=== PATIENT | female | born 1965 | race Caucasian/White ===

== ENCOUNTER 2019-10-11 16:31 | Outpatient (CLI) | payer OTHER, SELFPAY ==
[2019-10-11 18:09] LABS: Vitamin D 25 Hydroxy 48.9 ng/mL
== END 2019-10-11 16:32 | disposition home or self-care (01) ==
LOC: ANHLAB 16:33
PROVIDERS: Visit Provider Obstetrics & Gynecology
DX: Z78.0 Asymptomatic menopausal state (principal)
CPT/HCPCS: 36415; 82306

== ENCOUNTER → 2019-11-25 10:05 | Outpatient (CLI) | payer OTHER, SELFPAY ==
--- NOTE | ~2019-11-25 | MM_ITS ---
EXAMINATION: MM screening [facility] BI w jovi HISTORY: Screening mammogram TECHNIQUE: Craniocaudal and mediolateral oblique 3-D tomosynthesis images were obtained and synthetic 2-D images were generated. CAD analysis was submitted and interpreted. COMPARISON: 11/09/2018, 11/05/2017, 11/01/2016, 10/30/2015 BREAST PARENCHYMAL COMPOSITION: There are scattered areas of fibroglandular density. FINDINGS: There is no evidence of suspicious mass, calcification, or architectural distortion to sugg est malignancy in either breast. There has been no suspicious interval change. IMPRESSION: 1. No mammographic evidence of malignancy. 2. Recommend routine screening mammography in one year. BI-RADS Category 1: Negative Reviewed, dictated and finalized at location A.
--- NOTE | ~2019-11-25 | DEXA_ITS ---
Bone Density Report Name: Zaynab Mota Age: 54 Sex: Female Ethnicity: White Date of : 1965 Indication: postmenopausal; screening for osteoporosis; hysterectomy; Referring Provider: LAURA ACEVES Study: Bone densitometry was performed. Exam Date: November 25, 2019 Accession number: [id number] Bone Density: Region BMD T-score Z-score Classification AP Spine (L1-L4) 0.917 -1.2 -0.3 Osteopenia Femoral Neck (Left) 0.872 0.2 1.1 Normal Total Hip (Left) 0.947 0.0 0.6 Normal Femoral Neck (Right) 0.881 0.3 1.2 Normal Total Hip (Right) 1.004 0.5 1.1 Normal Total Hip Mean 0.976 0.3 0.9 Normal World Health Organization criteria for BMD impression classify patients as: Normal (T-score at or above -1.0), Osteopenia (T-score between -1.0 and -2.5), or Osteoporosis (T-score at or below -2.5). 10-year Fracture Risk(1): Major Osteoporotic Fracture 4.1% Hip Fracture 0.1% Reported Risk Factors: [place] (), Neck BMD=0.872, BMI=23.8 (1) FRAX(R) Version 3.08. Fracture probability calculated for an untreated patient. Fracture probability may be lower if the patient has received treatment. Previous Exams: Region Exam Age BMD T-score BMD Change BMD Change Date g/cm2 vs Baseline vs Previous AP Spine(L1-L4) 11/25/2019 54 0.917 -1.2 -0.176* -0.115 10/28/2014 49 1.032 -0.1 -0.061 -0.043* 10/05/2011 46 1.075 0.3 -0.018 -0.018 09/07/2007 42 1.093 0.4 Total Hip(Left) 11/25/2019 54 0.947 0.0 -0.198* -0.211 10/28/2014 49 1.158 1.8 0.013 -0.020 10/05/2011 46 1.178 1.9 0.034 0.034 09/07/2007 42 1.144 1.7 Total Hip(Right) 11/25/2019 54 1.004 0.5 -0.151* -0.183 10/28/2014 49 1.187 2.0 0.032 0.034* 10/05/2011 46 1.152 1.7 -0.002 -0.002 09/07/2007 42 1.155 1.7 *Denotes significance at 95% confidence level, LSC for AP Spine = 0.022 g/cm2, LSC for Total Hip = 0.027 g/cm2 Clinical Information Provided by Patient: Has the following medical conditions: Hysterectomy Patient maximum height was 64.5 Menopause Age: 46 Drinks caffeinated beverages Onset of menses at age 16 Number of children 2 Missed period for more than 6 months in a row Impression: The patient has low bone mass, based on the Total Spine T-score. Th
== END ==
PROVIDERS: PCP Family Medicine; Visit Provider Obstetrics & Gynecology
DX: Z12.31 Encounter for screening mammogram for malignant neoplasm of breast (principal); Z78.0 Asymptomatic menopausal state; M85.88 Other specified disorders of bone density and structure, other site
CPT/HCPCS: 77063; 77067; 77080

== ENCOUNTER 2019-11-29 16:34 | Outpatient (CLI) | payer OTHER, SELFPAY ==
[2019-11-29 17:38] LABS: Alanine Aminotransferase 36 U/L (4-35); Albumin Level 4.4 g/dL (3.5-5.1); Alkaline Phosphatase 66 U/L (38-126); Aspartate Amino Transferase 35 U/L (14-36); Bilirubin,Total 0.3 mg/dL (0.2-1.3)
== END 2019-11-29 16:35 | disposition home or self-care (01) ==
PROVIDERS: PCP Family Medicine; Visit Provider Podiatrist Foot & Ankle Surgery
DX: B35.1 Tinea unguium (principal)
CPT/HCPCS: 36415; 80076

== ENCOUNTER 2019-12-28 07:30 | Outpatient (CLI) | payer OTHER, SELFPAY ==
[2019-12-28 08:09] LABS: Alanine Aminotransferase 25 U/L (4-35); Albumin Level 4.2 g/dL (3.5-5.1); Alkaline Phosphatase 54 U/L (38-126); Aspartate Amino Transferase 33 U/L (14-36); Bilirubin,Total 0.3 mg/dL (0.2-1.3)
== END 2019-12-28 07:31 | disposition home or self-care (01) ==
PROVIDERS: PCP Family Medicine; Visit Provider Podiatrist Foot & Ankle Surgery
DX: B35.1 Tinea unguium (principal)
CPT/HCPCS: 36415; 80076

== ENCOUNTER → 2020-11-28 06:56 | Outpatient (CLI) | payer OTHER, SELFPAY ==
--- NOTE | ~2020-11-28 | MM_ITS ---
EXAMINATION: MM screening [facility] BI w jovi HISTORY: Screening TECHNIQUE: Craniocaudal and mediolateral oblique 3-D tomosynthesis images were obtained and synthetic 2-D images were generated. CAD analysis was submitted and interpreted. COMPARISON: Comparison to multiple prior studies sequentially, with oldest reviewed study dated 03/2015. BREAST PARENCHYMAL COMPOSITION: The breasts are heterogeneously dense, which may obscure small masses . FINDINGS: There is no evidence of suspicious mass, calcification, or architectural distortion to sugg est malignancy in either breast. There has been no suspicious interval change. IMPRESSION: 1. No mammographic evidence of malignancy. 2. Recommend routine screening mammography in one year. BI-RADS Category 1: Negative Reviewed, dictated and finalized at location A.
== END ==
PROVIDERS: PCP Family Medicine; Visit Provider Obstetrics & Gynecology
DX: Z12.31 Encounter for screening mammogram for malignant neoplasm of breast (principal)
CPT/HCPCS: 77063; 77067

== ENCOUNTER 2021-03-27 07:03 | Outpatient (CLI) | payer OTHER, SELFPAY ==
[2021-03-27 07:39] LABS: Alanine Aminotransferase 27 U/L (4-35); Albumin Level 4.3 g/dL (3.5-5.1); Alkaline Phosphatase 74 U/L (38-126); Anion Gap 2 mmol/L (8-16); Aspartate Amino Transferase 32 U/L (14-36); Bilirubin,Total 0.3 mg/dL (0.2-1.3); Blood Urea Nitrogen 17 mg/dL (7-17); Carbon Dioxide 29 mmol/L (22-30); Chloride 105 mmol/L (98-107); Cholesterol 185 mg/dL (0-200); Estimated Glomerular Filt Rate > 60; Glucose 91 mg/dL (65-110); HDL Direct 84 mg/dL; Potassium 4.1 mmol/L (3.4-5.0); Sodium 136 mmol/L (137-145); Triglycerides 56 mg/dL (<150)
[2021-03-27 07:44] LABS: Basophils Percent Auto 0.3 % (0.2-1.2); Eosinophils Absolute Auto 0.1 K/mm3 (0-0.3); Eosinophils Percent Auto 1.4 % (0-4.4); Hematocrit 35.8 % (37.0-47.0); Hemoglobin 11.4 g/dL (12.0-15.0); Immature Granulocyte Absolute 0.01 K/mm3 (0.00-0.031); Immature Granulocyte Percent A 0.2 % (0-0.5); Lymphocytes Absolute Auto 1.08 K/mm3 (0.9-3.2); Lymphocytes Percent Auto 18.7 % (18.3-44.2); Mean Corpuscular HGB Conc 31.8 g/dl (32-36); Mean Corpuscular Hemoglobin 28.4 pg (26-34); Mean Corpuscular Volume 89.3 fl (80-100); Mean Platelet Volume 9.7 fl (7.4-10.4); Monocytes Absolute Auto 0.4 K/mm3 (0.1-0.6); Monocytes Percent Auto 7.3 % (2.6-8.5); Neutrophils Absolute Auto 4.2 K/mm3 (1.3-6.7); Neutrophils Percent Auto 72.1 % (45.5-73.1); Platelet Count Result 253 k/mm3 (150-375); Red Blood Count 4.01 M/mm3 (4.2-5.4); Red Cell Distribution Width 12.8 % (11.5-14.5); White Blood Count 5.8 K/mm3 (4.5-10.0)
[2021-03-27 07:50] LABS: LDL Cholesterol Direct 74 mg/dL
== END 2021-03-27 07:04 | disposition home or self-care (01) ==
PROVIDERS: PCP Family Medicine; Visit Provider Family Medicine
DX: D50.9 Iron deficiency anemia, unspecified (principal); Z00.00 Encounter for general adult medical examination without abnormal findings; Z13.1 Encounter for screening for diabetes mellitus; Z13.220 Encounter for screening for lipoid disorders
CPT/HCPCS: 36415; 80053; 80061; 85025

== ENCOUNTER → 2021-12-04 07:10 | Outpatient (CLI) | payer OTHER, SELFPAY ==
--- NOTE | ~2021-12-04 | MM_ITS ---
EXAMINATION: MM screening [facility] BI w jovi HISTORY: Screening mammogram TECHNIQUE: Craniocaudal and mediolateral oblique 3-D tomosynthesis images were obtained and synthetic 2-D images were generated. CAD analysis was submitted and interpreted. COMPARISON: 11/28/2020, 11/25/2019, 11/09/2018 bilateral screening mammogram examinations BREAST PARENCHYMAL COMPOSITION: The breasts are heterogeneously dense, which may obscure small masses . FINDINGS: There is no evidence of suspicious mass, calcification, or architectural distortion to sugg est malignancy in either breast. There has been no suspicious interval change. IMPRESSION: 1. No mammographic evidence of malignancy. 2. Recommend routine screening mammography in one year. BI-RADS Category 1: Negative Reviewed, dictated and finalized at location B.
== END ==
PROVIDERS: PCP Family Medicine; Visit Provider Obstetrics & Gynecology
DX: Z12.31 Encounter for screening mammogram for malignant neoplasm of breast (principal)
CPT/HCPCS: 77063; 77067

== ENCOUNTER → 2021-12-07 08:44 | Outpatient (CLI) | payer OTHER, SELFPAY ==
--- NOTE | ~2021-12-07 | XR_ITS ---
EXAMINATION: XR abdomen/kub 1V DATE: 12/07/2021 09:21 INDICATION: Hematuria. TECHNIQUE: A supine view of the abdomen on 2 radiographs was obtained. COMPARISON: CT abdomen and pelvis 12/07/2021 FINDINGS: There are no dilated loops of bowel. There is a moderate volume of stool in the colon. Surg ical clips in the right upper quadrant are likely from cholecystectomy. IMPRESSION: 1. No urolithiasis. Reviewed, dictated and finalized at location A. IMPRESSION: 1. No urolithiasis.
--- NOTE | ~2021-12-07 | CT_ITS ---
EXAMINATION: CT abdomen pelvis wo/w con DATE: 12/07/2021 09:22 INDICATION: Hematuria. TECHNIQUE: Computed tomography (CT) of the abdomen and pelvis was performed without and with intraven ous contrast using a total of 130 mL Omnipaque-350 intravenous contrast with a double-bolus technique for simultaneous opacification of the renal parenchyma and renal collecting system. Automated exposu re control and iterative reconstruction technique were employed. The dose-length product was 1184.24 mGy-cm. COMPARISON: CT abdomen and pelvis 04/26/2004 FINDINGS: The visualized portions of the lung bases demonstrate mild atelectasis. No pleural effusion. The hear t size is normal. No pericardial effusion. There are cysts in the liver measuring up to 8 mm. There a re changes of cholecystectomy. The spleen, pancreas, and adrenal glands are normal. The kidneys are n ormal. There is no urolithiasis. Right ureter is not well opacified distally, but is normal. Left ure ter is not well opacified distally, but is normal. The bladder is normal. There are no dilated loops of bowel. The appendix is normal. There are no pathologically enlarged lymph nodes. There is no free intraperitoneal fluid. There is severe degenerative disc disease at L5-S1. IMPRESSION: 1. No etiology for hematuria. Reviewed, dictated and finalized at location A.
[2021-12-07 09:03] LABS: Estimated Glomerular Filt Rate > 60
== END ==
PROVIDERS: PCP Family Medicine; Visit Provider Nurse Practitioner Family
DX: R31.9 Hematuria, unspecified (principal)
CPT/HCPCS: 74018; 74178; Q9967

== ENCOUNTER 2022-01-01 07:23 | Outpatient (CLI) | payer OTHER, SELFPAY ==
[2022-01-01 08:44] LABS: Hematocrit 36.1 % (37.0-47.0); Hemoglobin 11.5 g/dL (12.0-15.0)
== END 2022-01-01 07:24 | disposition home or self-care (01) ==
LOC: ANHSURGERY 07:26
PROVIDERS: Anesthesiology; PCP Family Medicine; Visit Provider Podiatrist Foot & Ankle Surgery
DX: D64.9 Anemia, unspecified (principal)
CPT/HCPCS: 36415; 85014; 85018

== ENCOUNTER 2022-01-04 00:55 | Day surgery (SDC) | payer OTHER, SELFPAY ==
[2021-12-28 10:01] VITALS: BMI 25.3
--- NOTE | 2021-12-28 10:15 | PC.NURSE ---
Report to the Outpatient Waiting Room, entrance under the green pavilion located off [facility], at time 6:00 on date 01/04/22. OR Time: 7:30. Time changes happen often and if your time is changed the preop area will call you the afternoon before. - You and your visitor will be asked to self-screen and do not enter if you have any COVID symptoms. - Only one visitor and NO children visitors are allowed at this time. - The patient visitor is requested to leave or wait in car when not with patient due to restrictions. - A mask is required within the hospital. Patients may have clear liquids (water, carbonated beverages, clear teas, apple juice) until 3 hours prior to surgery (4:30) with a maximum of 20 ounces. - No food from midnight until time of surgery Take the following medications with a SIP of water the morning of surgery: VENLAFAXINE Medications to discontinue per physician: VITAMINS/SUPPLEMENTS Date to take last dose: 12/31/[address] KWAN Please no make-up, nail sami, hairspray, perfume, deodorant, or body powder the day of surgery. No jewelry (including any body piercings) or valuables the day of surgery, leave them at home. Please take a shower or bath the night before, or the morning of, surgery with an antibacterial soap. Wear comfortable, loose fitting clothing. - Jewelry must be removed prior to entering the operating room. Rings and piercings that are not removed may be cut off. - The hospital will not accept responsibility for valuables. - Please leave all valuables, including medications, at home the day of surgery. If you are going home after surgery, a licensed route driver salesperson must drive you home. - NO public transportation without another adult. - We recommend that an adult stay with you for 24 hours following discharge. - We also recommend that you do not drive, make important decision, drink alcoholic beverages, or take any drugs that were not prescribed by your health care provider for at least 24 hours after your discharge time. Follow any additional instructions given to you from your surgeon. If you or anyone in your household have experienced Covid symptoms in the past week, please notify your surgeon or the nurse liaison at the phone number below for possible testing. Telephone instructions given to PT - LIANG AMDRIGAL and asked if any additional questions and then verbalized understanding. Patient advised to call surgeon office or pre surgery nurse liaison [phone] if any additional questions.
--- NOTE | 2022-01-03 13:17 | WPDANESEPPF ---
Anes - Initial Pre Proc Eval Procedure: Operation Date: 01/04/22 07:30 Proposed Procedures p Lapidus Bunionectomy Left Foot, David Phalangeal Osteotomy Left Hallux - Vel Way JR, MD Date/Time: 01/03/22 13:17 Surgeon: Vel Way JR, MD Pre Op Diagnosis: bunion left foot Patient Data Age: 56 Gender: F Height: 1.64 m Weight: 68.04 kg Allergies Allergy/AdvReac Type Severity Reaction Status Date / Time adhesive Allergy Unknown SKIN Verified 01/04/22 06:53 BLISTERS Penicillins Allergy Unknown unknown Verified 01/04/22 06:53 Sulfa (Sulfonamide Allergy Unknown HIVES Verified 01/04/22 06:53 Antibiotics) sulfanilamide Allergy Unknown Unknown Verified 01/04/22 06:53 telithromycin Allergy Unknown Unknown Verified 01/04/22 06:53 hydrocodone AdvReac Unknown N/V Verified 01/04/22 06:53 duloxetine [From Cymbalta] AdvReac Nausea and Verified 01/04/22 06:53 Vomiting Bumble Bee Allergy Unknown ANAPHYLAXIS Uncoded 01/04/22 06:53 STERI STRIPS Allergy Blister Uncoded 01/04/22 06:53 Home Medications Medication Instructions Recorded Confirmed Type aspirin 81 mg tablet,delayed 81 mg PO DAILY 09/28/19 01/04/22 History release (Adult Low Dose Aspirin) ferrous sulfate 325 mg (65 mg 325 mg PO DAILY 09/28/19 01/04/22 History iron) tablet (Feosol) loratadine 10 mg capsule 10 mg PO DAILY 09/28/19 01/04/22 History multivit,mineral-folic acid 800 1 tablet PO DAILY 09/28/19 01/04/22 History mcg-vit K 100 mcg-herbal no.289 tablet (Alive Once Daily Women 50 Plus) pyridoxine (vitamin B6) 100 mg 100 mg PO DAILY 09/28/19 01/04/22 History tablet rizatriptan 10 mg tablet See Rx Instructions PO .COMPLEX 10/11/21 01/04/22 History calcium carbonate 500 mg-vitamin 1 tablet PO DAILY 12/28/21 01/04/22 History D3 10 mcg (400 unit) tablet (Calcium 500 + D) magnesium 250 mg tablet 250 mg PO DAILY 12/28/21 01/04/22 History riboflavin (vitamin B2) 25 mg 25 mg PO DAILY 12/28/21 01/04/22 History tablet venlafaxine 37.5 mg 37.5 mg PO DAILY 12/28/21 01/04/22 History capsule,extended release 24 hr Patient hx anesthesia problems: none Family hx anesthesia problems: none Results Review: All pre-operative results and documents have been reviewed as part of the pre-operative evaluation. PMFSH Past Medical History Medical History Depression Vaginal delivery x 2 Surgical History Surgical History History of bilateral tubal ligation History of cholecystectomy History of endometrial ablation History of laparoscopy History of tonsillectomy History of total hysterectomy with bilateral salpingo-oophorectomy (BSO) S/P shoulder surgery Family History Family History Mother Family history of elevated blood lipids Grandparent Family history of Alzheimer's disease, Onset Age: 201 Family history of pulmonary embolism, Onset Age: 54 Diabetes mellitus Father Family history of malignant neoplasm of urinary bladder Sibling Family history of cardiomyopathy Family history of left ventricular non-compaction (LVNC) Other Family history of malignant neoplasm of breast Family history of malignant neoplasm of male breast Social History Social History Smoking status: Never smoker Second hand tobacco smoke exposure: No Alcohol intake: current Alcohol use details: OCCASIONALLY Substance use: never Substance use type: does not use Living arrangements: with family Spiritual care concerns: No Anes - Eval Final PreProcedure Day of Procedure 01/03/22 13:17 Patient weight: normal Heart: regular rate and rhythm Lungs: clear to auscultation and normal air movement Airway: Mallampati scale class II Neurological: alert and oriented Last ora
[2022-01-04] VITALS (8 sets, daily range): BP systolic 97–120; BP diastolic 41–74; PULSE 59–84; RESP 13–18; TEMP 36.2–36.9; O2SAT 96–100
--- NOTE | ~2022-01-04 | XR_ITS ---
EXAMINATION: XR surgery orthopedic DATE: 01/04/2022 09:14 INDICATION: Left foot bunionectomy TECHNIQUE: 3 fluoroscopic images of the left forefoot were obtained during procedure performed by Dr. Way. Radiologist was not present for the imaging or procedure. The amount of fluoroscopy time u sed during this procedure was 0.4 minutes. COMPARISON: 09/27/2013 FINDINGS: Likely closing wedge osteotomy at the base of the first proximal phalanx with medial sided staple fix ation. First tarsal metatarsal arthrodesis with dorsal plate and screw fixation as well as a lag scre w extending from the base of the first metatarsal across a portion of the medial cuneiform into the m id cuneiform. Small amount of soft tissue gas overlying the medial head of the first metatarsal altho ugh no definitive osteotomies identified at the head of the first metatarsal. Wire-like metallic dens ity projecting over the medial side of the second toe which extends beyond the skin surface possibly a lap sponge marker. Alignment of the visualized bones is normal. No fracture. Visualized joint space s appear relatively preserved. IMPRESSION: 1. Fluoroscopy utilized during orthopedic procedure at the left foot as detailed above. See procedure note for further detail. Reviewed, dictated and finalized at location A. IMPRESSION: 1. Fluoroscopy utilized during orthopedic procedure at the left foot as detaile d above. See procedure note for further detail.
[2022-01-04] MEDS: LACTATED RINGERS 1,000 ML 30 ML IV CONT (06:30)
--- NOTE | 2022-01-04 07:10 | WPDHPUPDATE1 ---
History and Physical Update Update Date/Time: 01/04/22 07:10 History and Physical has been reviewed, including an updated exam of the patient. There are NO changes in the patient's condition. Risks, benefits, and alternatives have been discussed and questions answered. Patient agrees to proceed with procedure.
--- NOTE | 2022-01-04 07:13 | WPDANESPNB ---
Anes - Peripheral Nerve Block Date/Time: 01/04/22 07:13 I have discussed with the patient/family/POA the placement of a peripheral nerve block for post-operative pain management, including associated risks, benefits, complications, and side effects. Alternative methods of post-operative analgesia were detailed. Questions were solicited and answers provided to the satisfaction of the patient/family/POA. Time-Out: A pre-procedural Time-Out was completed immediately before starting the procedure and confirmed: Patient Identification, Site, Procedure, Patient Position and the Availability of Requisite Equipment. Clinical Indications: Acute post-operative pain management requested by the operative surgeon. Nerve Block Insertion Note Anes-nerve block: posterior fossa sciatic (20cc) Patient position: supine Skin prep: chlorhexidine Needle: 22 gauge, stimulating, insulated echogenic needle. Needle length: 80 mm Technique: ultrasound (in plane) Injectate: bupivacaine 0.5% with epi 5 mcg/ml (20cc) Observations: tolerated well Complications: none Procedure start time:: 720 Procedure end time:: 725
[2022-01-04] MEDS: SCOPOLAMINE 1.5 MG PATCH TRANSDERM (07:25)
[2022-01-04] MEDS: ceFAZolin 2 GM/D5W 50 ML 2 GM/50 ML BAG IVPB (07:37)
--- NOTE | 2022-01-04 09:36 | W.PM.PROC2 ---
Procedure Note - Detailed Date of Procedure 01/04/22 Pre-op Diagnosis Bunion left foot Post-op Diagnosis Same Procedure Performed Lapidus bunionectomy left foot David phalalangeal osteotomy left hallux Surgeon Vel Way JR, RADHA Anesthesia General and Regional Indications Painful bunion left foot Description of Procedure Under mild sedation, the patient was brought to the operating room, placed on the operating table in the supine position. A pneumatic ankle tourniquet was placed about the patient's ankle. Following general anesthesia and a previous popliteal fossa block, the foot was then scrubbed, prepped, and draped in the usual aseptic manner. An Esmarch bandage was then used to examine the patient's foot and pneumatic ankle tourniquet was then inflated. Surgery began in the following manner. Attention was directed to the dorsal aspect of the 1st metatarsocuneiform of the foot where fluoroscopy was used to identify the joint. A 3 cm incision was made overlying the dorsal aspect of the 1st metatarsocuneiform joint of the foot just medial to the extensor hallucis longus tendon. The incision was then continued deep down through the subcutaneous tissues using sharp and blunt dissection. All bleeders were ligated and cauterized as necessary. At this point, the extensor tendon was identified and reflected laterally. Next, the periosteum and capsular incision was made at the full length of the skin incision exposing the medial cuneiform as well as the base of the 1st metatarsal. Next, a sagittal bone saw was introduced from dorsal to plantar across the 1st metatarsocuneiform joint in order to free up any ankylosed portions of the joint and also to release any adhesions. Two Steinmann Pins were driven from dorsal to plantar 1cm proximal and distal to the 1st metatarsal cuneiform joint. The provided curved osteotome and curette was used to resect the cartilage and subchondral bone and a 2.0mm drill bit was used to fenestrate the joint to promote fusion. At this point, a small 2 cm incision was made along the lateral aspect of the 1st metatarsophalangeal joint of the left foot and a lateral release consisting of a lateral capsule incision as well as release of the adductor hallucis tendon with the tenotomy as well as releasing the distal aspect and lateral aspect and proximal aspect of the fibular sesamoid. After this, a lateral release was performed. The hallux was noted to be slightly reduced as far as the track-bound hallux. A 3m incision was made medial to the first metatarsal head extending proximal to the proximal phalanx. A 1.4mm Steinmann pin was driven from medial to lateral across the 1st metatarsal head. Next the Lapifuse positioner was used to obtain 3 plane correction of the hallux abductovalgus deformity. Fluoroscopy was used to make sure that the 1st MPJ was congruous and the sesamoid apparatus was centered under the first metatarsal. Next a 4mm cannulated screw was driven from the medial base of the 1st metatarsal to the central and lateral cuneiform bone. Excellent compression was noted, next a Lapifuse plate was placed dorsal medially along the 1st metatarsal cuneiform joint and 4 locking and one eccentrically drilled non locking screws was used to further compress the joint to ensure arthrodesis. At this point the positioner was removed and fluoroscopy was used to make sure that deformity correction was maintained. The patient still had slight hallux abductus so I made a closing medial base wedge resection from the base of the proximal phalanx and compressed the osteotomy with a Bujbu 8mm nitinol compression staple. After the David osteotomy the hallux was noted to be in a rectus position. The periosteum and capsular structures were reapproximated and coapted utilizing horizontal mattress as well as simple interrupted suture fashion technique along the 1st metatarsophalangeal joint and then 3-0 PDS wa
[2022-01-04] MEDS: ONDANSETRON INJ 4 MG/2 ML VIAL IV PUSH (10:51)
== END 2022-01-04 11:54 | disposition home or self-care (01) ==
PROVIDERS: PCP Family Medicine; Visit Provider Podiatrist Foot & Ankle Surgery
PROC: (CPT 28299; principal; 2022-01-04 07:30)
DX: M21.612 Bunion of left foot (principal)
CPT/HCPCS: 28298; 99199; A9270; C1713; J0690; J1100; J2250; J2405; J2704; J3010; J7120

== ENCOUNTER 2022-03-29 06:59 | Outpatient (CLI) | payer OTHER, SELFPAY ==
[2022-03-29 07:39] LABS: Hematocrit 35.2 % (37.0-47.0); Mean Corpuscular HGB Conc 31.3 g/dl (32-36); Mean Corpuscular Volume 89.6 fl (80-100); Mean Platelet Volume 9.3 fl (7.4-10.4); Platelet Count Result 316 k/mm3 (150-375); Red Blood Count 3.93 M/mm3 (4.2-5.4); White Blood Count 3.8 K/mm3 (4.5-10.0)
[2022-03-29 07:43] LABS: Alanine Aminotransferase 26 U/L (6-35); Albumin Level 4.2 g/dL (3.5-5.1); Alkaline Phosphatase 110 U/L (38-126); Anion Gap 5 mmol/L (8-16); Aspartate Amino Transferase 27 U/L (14-36); Bilirubin,Total 0.2 mg/dL (0.2-1.3); Blood Urea Nitrogen 22 mg/dL (7-17); Calcium 8.9 mg/dL (8.4-10.2); Carbon Dioxide 31 mmol/L (22-30); Chloride 101 mmol/L (98-107); Cholesterol 218 mg/dL (0-200); Estimated Glomerular Filt Rate > 60; Glucose 88 mg/dL (65-110); HDL Direct 89 mg/dL; Potassium 3.8 mmol/L (3.4-5.0); Sodium 137 mmol/L (137-145); Triglycerides 55 mg/dL (<150)
[2022-03-29 07:54] LABS: LDL Cholesterol Direct 84 mg/dL
== END 2022-03-29 07:00 | disposition home or self-care (01) ==
LOC: ANHLAB 07:02
PROVIDERS: PCP Family Medicine; Visit Provider Family Medicine
DX: D50.9 Iron deficiency anemia, unspecified (principal); Z13.1 Encounter for screening for diabetes mellitus; Z13.220 Encounter for screening for lipoid disorders
CPT/HCPCS: 36415; 80053; 80061; 85027

== ENCOUNTER 2022-08-06 15:30 | Outpatient (RCR) | payer OTHER, SELFPAY ==
--- NOTE | 2022-06-25 15:55 | PTOPEVAL1 ---
Assessment and note entered by Michelle Canales, PT Evaluation Information Assessment Status Evaluation Diagnosis low back pain Onset June 04, 2022 Subjective Information gave antiinflammatory meds - helping; chronic back pain, twisted back in 1987 and problems off/ on since then; had MRI 2014--bulging discs and foramina changes per pt; have had PT in the past--exercises; pain management and injections--did not like them; since onset at start of month-- back pain is less; able to move more; does not normally do any fitness exercises but walking; since Dec L foot surgery, have not been as active; Reported Pain Level Pain Score Self Report Additional Pain Score Comments pain range in past week 0-10/10; low back, dull, ache, stabbing in back-- inside back; R lateral hip sore and weak feeling; increase pain when wake up in AM, tend to sleep on back or on R side; decrease pain with using muscle cream, antiinflammatory- but stopped taking, have 3 left of the script; feel little better as day goes on; heat pad, massage trigger gun; educated and use of trial Theracane for self massage to trigger points; have a back brace, use PRN; at home--- have an exercise ball, but not using; discussed using for exercises and stretching; Assessment PT Clinical Summary Zaynab has the diagnosis of low back pain. She has a history of chronic, intermittent back pain. And in December had L bunionectomy surgery, with L toe pain still present. This onset of back pain was about 3 weeks ago and is less now. She works as an structured cabling technician. With the evaluation, she has increased back pain with standing trunk extension and supine R hip stretch ER with figure 4 stretch - pain anterior hip. In standing, her R iliac crest is elevated and R shoulder and trunk forward rotation; there is pain in L foot with standing B PF & sitting big toe flexion and extension motions, with decreased flexion ROM and decreased single leg standing L; Skilled PT services are indicated for modalities to decrease pain, therapeutic exercises to increase hip and aide
--- NOTE | 2022-07-25 16:51 | PCPTNOTE ---
perioperative assistant, Brigida, asked physical therapist to rule out BPPV before physical therapist walked out the door as patient reports feeling dizzy. Patient has no issues with smooth pursuit, does have some blurriness with saccades and VOR. able to do Rhomberg eyes closed and on unfirm surface with eyes closed 30 seconds only using ankles mobility. No nystagmus or dizziness with [place] to the R or the L side. Could be hypoactive vestibular, but does not appear to be BPPV.
--- NOTE | 2022-08-07 08:04 | PTOPDC ---
Assessment and note entered by Michelle Canales, PT Evaluation Information Assessment Status Discharge Diagnosis low back pain Onset June 04, 2022 Subjective Information Zaynab reports: has been doing all of the exercises at home, has an exercise ball and using it; feels like therapy has helped some, but continues to have pain; is doing all her home and work things; more pain after watching grandkids over past weekend. Agrees to discharge PT and continue with her exercises and watching her back position. 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 EDUCATION: reviewed HEP- reinforced continue to perform; body mechanics and posture with walking dog, lifting up grandchildren, sewing, work positions--after awkward tasks, stretch in opposite direction, not to hold positions too long stretch and move at least every 30 min of sitting; monitor activity balance--work, rest balance. Pt voiced good understanding of above. [ End ] Assessment PT Clinical Summary Zaynab has received a total of 10 PT for the diagnosis of back pain. Compared to the initial evaluation: pain rating at the high rating has decreased from 10 to 8/10; continues to have times of NO pain; strength of trunk and hips has improved; education for HEP and body mechanics has been completed. The goals were partially met. Discharge PT--pt agreed to d/c and to continue with her HEP and monitor body mechanics. Plan of Care PT Services Indicated No
== END 2022-08-07 10:38 | disposition home or self-care (01) ==
LOC: ANHPT 15:30
PROVIDERS: PCP Family Medicine; Visit Provider Family Medicine
DX: S39.012D Strain of muscle, fascia and tendon of lower back, subsequent encounter (principal)
CPT/HCPCS: 97110; 97112; 97162; 97530

== ENCOUNTER → 2022-12-10 07:19 | Outpatient (CLI) | payer OTHER, SELFPAY ==
--- NOTE | ~2022-12-10 | MM_ITS ---
EXAMINATION: MM screening [facility] BI w jovi HISTORY: Screening mammogram TECHNIQUE: Craniocaudal and mediolateral oblique 3-D tomosynthesis images were obtained and synthetic 2-D images were generated. CAD analysis was submitted and interpreted. COMPARISON: 12/04/2021, 11/28/2020, 11/25/2019 BREAST PARENCHYMAL COMPOSITION:There are scattered areas of fibroglandular density. FINDINGS: No suspicious mass, calcification, or architectural distortion are identified in either neeraj ast to suggest malignancy. There has been no suspicious interval change. IMPRESSION: No mammographic evidence of malignancy. Recommend routine screening mammography in one year. BI-RADS Category 1: Negative Reviewed, dictated and finalized at location .
== END ==
PROVIDERS: PCP Family Medicine; Visit Provider Obstetrics & Gynecology
DX: Z12.31 Encounter for screening mammogram for malignant neoplasm of breast (principal)
CPT/HCPCS: 77063; 77067

== ENCOUNTER → 2023-03-20 13:12 | Outpatient (CLI) | payer OTHER, SELFPAY ==
--- NOTE | ~2023-03-20 | DEXA_ITS ---
Bone Density Report Name: LIANG MADRIGAL Age: 57 Sex: Female Ethnicity: White Date of : 1965 Indication: osteopenia; hysterectomy; Referring Provider: LAURA ACEVES Study: Bone densitometry was performed. Exam Date: March 20, 2023 Accession number: [id number] Bone Density: Region BMD T-score Z-score Classification AP Spine (L1-L4) 0.969 -0.7 0.4 Normal Femoral Neck (Left) 0.862 0.1 1.2 Normal Total Hip (Left) 1.014 0.6 1.3 Normal Femoral Neck (Right) 0.857 0.1 1.1 Normal Total Hip (Right) 1.009 0.5 1.3 Normal Total Hip Mean 1.012 0.6 1.3 Normal World Health Organization criteria for BMD impression classify patients as: Normal (T-score at or above -1.0), Osteopenia (T-score between -1.0 and -2.5), or Osteoporosis (T-score at or below -2.5). 10-year Fracture Risk: FRAX not reported because: All T-scores for Spine Total, Hip Total, Femoral Neck at or above -1.0 Previous Exams: Region Exam Age BMD T-score BMD Change BMD Change Date g/cm2 vs Baseline vs Previous AP Spine(L1-L4) 03/20/2023 57 0.969 -0.7 -0.125* 0.051* 11/25/2019 54 0.917 -1.2 -0.176* -0.115 10/28/2014 49 1.032 -0.1 -0.061 -0.043* 10/05/2011 46 1.075 0.3 -0.018 -0.018 09/07/2007 42 1.093 0.4 Total Hip(Left) 03/20/2023 57 1.014 0.6 -0.130* 0.068* 11/25/2019 54 0.947 0.0 -0.198* -0.211 10/28/2014 49 1.158 1.8 0.013 -0.020 10/05/2011 46 1.178 1.9 0.034 0.034 09/07/2007 42 1.144 1.7 Total Hip(Right) 03/20/2023 57 1.009 0.5 -0.146* 0.005 11/25/2019 54 1.004 0.5 -0.151* -0.183 10/28/2014 49 1.187 2.0 0.032 0.034* 10/05/2011 46 1.152 1.7 -0.002 -0.002 09/07/2007 42 1.155 1.7 *Denotes significance at 95% confidence level, LSC for AP Spine = 0.022 g/cm2, LSC for Total Hip = 0.027 g/cm2 Clinical Information Provided by Patient: Has used the following medications: Calcium, multi vit Has the following medical conditions: Hysterectomy Patient maximum height was 64.5 Menopause Age: 46 No regular weight bearing exercise Does not regularly consume dairy products Drinks caffeinated beverages Onset of menses at age 16 Number of children 2 Missed period for more than 6 months in a row Impression: The patient has normal bone mass. No significant bone loss was observed.
== END ==
PROVIDERS: PCP Family Medicine; Visit Provider Obstetrics & Gynecology
DX: M85.80 Other specified disorders of bone density and structure, unspecified site (principal)
CPT/HCPCS: 77080

== ENCOUNTER 2023-05-05 07:17 | Outpatient (CLI) | payer OTHER, SELFPAY ==
[2023-05-05 08:33] LABS: Vitamin D 25 Hydroxy 54.2 ng/mL
[2023-05-05 08:46] LABS: Alanine Aminotransferase 18 U/L (6-35); Albumin Level 4.2 g/dL (3.5-5.1); Alkaline Phosphatase 64 U/L (38-126); Anion Gap 5 mmol/L (8-16); Aspartate Amino Transferase 25 U/L (14-36); Bilirubin,Total 0.6 mg/dL (0.2-1.3); Blood Urea Nitrogen 19 mg/dL (7-17); Calcium 9.3 mg/dL (8.4-10.2); Carbon Dioxide 29 mmol/L (22-30); Chloride 104 mmol/L (98-107); Cholesterol 221 mg/dL (0-200); Estimated Glomerular Filt Rate > 60; Glucose 91 mg/dL (65-110); HDL Direct 85 mg/dL; Potassium 4.1 mmol/L (3.4-5.0); Sodium 138 mmol/L (137-145); Triglycerides 85 mg/dL (<150)
[2023-05-05 08:57] LABS: LDL Cholesterol Direct 97 mg/dL
== END 2023-05-05 07:18 | disposition home or self-care (01) ==
LOC: ANHLAB 07:19
PROVIDERS: PCP Family Medicine; Visit Provider Family Medicine
DX: Z00.00 Encounter for general adult medical examination without abnormal findings (principal); R03.0 Elevated blood-pressure reading, without diagnosis of hypertension; Z78.0 Asymptomatic menopausal state
CPT/HCPCS: 36415; 80053; 80061; 82306; 84443

== ENCOUNTER 2023-12-16 07:19 | Outpatient (CLI) | payer OTHER, SELFPAY ==
--- NOTE | ~2023-12-16 | MM_ITS ---
EXAMINATION: MM screening [facility] BI w jovi HISTORY: Screening mammogram TECHNIQUE: Craniocaudal and mediolateral oblique 3-D tomosynthesis images were obtained and synthetic 2-D images were generated. CAD analysis was submitted and interpreted. COMPARISON: 12/10/2022, 12/04/2021, 11/28/2020 BREAST PARENCHYMAL COMPOSITION:Not Dense. There are scattered areas of fibroglandular density. FINDINGS: No suspicious mass, calcification, or architectural distortion are identified in either neeraj ast to suggest malignancy. There has been no suspicious interval change. IMPRESSION: No mammographic evidence of malignancy. Recommend routine screening mammography in one year. BI-RADS Category 1: Negative Reviewed, dictated and finalized at location .
== END 2023-12-16 07:20 | disposition home or self-care (01) ==
PROVIDERS: PCP Family Medicine; Visit Provider Obstetrics & Gynecology
DX: Z12.31 Encounter for screening mammogram for malignant neoplasm of breast (principal)
CPT/HCPCS: 77063; 77067

== ENCOUNTER 2024-05-17 10:45 | Outpatient (CLI) | payer OTHER, SELFPAY ==
--- NOTE | ~2024-05-17 | XR_ITS ---
AP and lateral views of the right hip Clinical history: Pain Findings: No acute fracture or dislocation is seen. Osseous alignment is anatomic. Right hip joint is intact. Soft tissues are unremarkable. Impression: No significant abnormality is seen. Reviewed, dictated and finalized at location M. NT AGENT Impression: No significant abnormality is seen.
== END 2024-05-17 10:46 | disposition home or self-care (01) ==
PROVIDERS: PCP Family Medicine; Visit Provider Family Medicine
DX: M25.551 Pain in right hip (principal)
CPT/HCPCS: 73502

== ENCOUNTER 2024-05-27 07:06 | Outpatient (CLI) | payer OTHER, SELFPAY ==
[2024-05-27 08:29] LABS: Alanine Aminotransferase 19 U/L (6-35); Albumin Level 4.3 g/dL (3.5-5.1); Alkaline Phosphatase 68 U/L (38-126); Anion Gap 6 mmol/L (4-12); Aspartate Amino Transferase 24 U/L (14-36); Bilirubin,Total 0.5 mg/dL (0.2-1.3); Blood Urea Nitrogen 21 mg/dL (7-17); Calcium 9.2 mg/dL (8.4-10.2); Carbon Dioxide 30 mmol/L (22-30); Chloride 103 mmol/L (98-107); Cholesterol 220 mg/dL (0-200); Estimated Glomerular Filt Rate > 60; Glucose 90 mg/dL (65-110); HDL Direct 79 mg/dL; Potassium 4.3 mmol/L (3.4-5.0); Sodium 139 mmol/L (137-145); Triglycerides 97 mg/dL (<150)
[2024-05-27 08:30] LABS: Vitamin D 25 Hydroxy 73.9 ng/mL
[2024-05-27 08:40] LABS: LDL Cholesterol Direct 95 mg/dL
== END 2024-05-27 07:07 | disposition home or self-care (01) ==
LOC: ANHLAB 07:07
PROVIDERS: PCP Family Medicine; Visit Provider Family Medicine
DX: Z00.00 Encounter for general adult medical examination without abnormal findings (principal); Z13.220 Encounter for screening for lipoid disorders; Z13.29 Encounter for screening for other suspected endocrine disorder
CPT/HCPCS: 36415; 80053; 80061; 82306; 84443

== ENCOUNTER 2024-12-20 07:24 | Outpatient (CLI) | payer OTHER, SELFPAY ==
--- NOTE | ~2024-12-20 | MM_ITS ---
EXAMINATION: MM screening [facility] BI w jovi HISTORY: Screening TECHNIQUE: Craniocaudal and mediolateral oblique 3-D tomosynthesis images were obtained and synthetic 2-D images were generated. CAD analysis was submitted and interpreted. COMPARISON: Comparison to multiple prior studies sequentially, with oldest reviewed study dated , 11/25/2019 BREAST PARENCHYMAL COMPOSITION: There are scattered areas of fibroglandular density. FINDINGS: There is no evidence of suspicious mass, calcification, or architectural distortion to suggest malignancy in either breast. IMPRESSION: 1. No mammographic evidence of malignancy. 2. Recommend routine screening mammography in one year. BI-RADS Category 1: Negative Reviewed, dictated and finalized at location B.
== END 2024-12-20 07:25 | disposition home or self-care (01) ==
LOC: MICIMG 07:25
PROVIDERS: PCP Family Medicine; Visit Provider Obstetrics & Gynecology
DX: Z12.31 Encounter for screening mammogram for malignant neoplasm of breast (principal)
CPT/HCPCS: 77063; 77067